=== PATIENT | male | born 1985 | race Caucasian/White ===

== ENCOUNTER 2016-12-12 21:23 | Emergency (ER) | payer OTHER ==
[2016-12-12] MEDS ORDERED: LORazepam 1 MG TABLET ONE (22:35)
--- NOTE | 2016-12-12 22:38 | ER PHYSICIAN DOCUMENTATION ---
Physician Documentation [facility] Name:Tristin Nevarez Age:31 yrs Sex:Male :1985 Arrival Date:12/12/2016 Time:21:20 Bed1 Private MD: Nam Baltazar Disposition: 12/12/16 22:26 Discharged to Home/Self Care. Impression: Seizure. - Condition is Good. - Discharge Instructions: SEIZURE, Recurrent [Adult]. - Medical Reconciliation form form. - Follow up: Private Physician; When: 2 - 3 days; Reason: Continuance of care. - Problem is new. - Symptoms have improved. HPI: 12/12 22:23 This 31 yrs old Male presents to ER via Walk In with complaints of Seizure. sc 22:23 The patient presents with a history of multiple seizures, an unknown number, that last sc 15 second(s). Character of seizure(s): Loss of consciousness: the patient did not lose consciousness, Motor activity: focal activity, Incontinence: none, Apnea: the patient did not experience apnea, Circulation: the patient did not experience evidence of pulse disturbance. Seizure Hx: Cause: head injury, Usual frequency: roughly every 2 week(s), Seizure medications: Keppra, but started today, off sz meds for a while. On ativan in past for breakthrough szs, eeg monitoring to be done soon. Associated injury: The patient did not suffer any apparent associated injury. Historical: - Allergies: No known drug Allergies; - Home Meds: 1. levetiracetam 100 mg/mL oral soln Unknown for Partial Epilepsy Treatment Adjunct - PMHx: Seizures; Tramatic brain injury; - PSHx: None; - Tetanus: < 10 years. - Ebola Screening: : No symptoms or risks identified at this time. . - Immunization history: Unable to Obtain. - Social history: Smoking status: Patient uses tobacco products, current every day smoker. Patient uses marijuana. ROS: 22:25 Constitutional: Negative for fever, chills, and weight loss. sc Eyes: Negative for injury, pain, redness, and discharge. ENT: Negative for injury, pain, and discharge. Cardiovascular: Negative for chest pain, palpitations, and edema. Respiratory: Negative for shortness of breath, cough, wheezing, and pleuritic chest pain. Back: Negative for injury and pain. 22:25 Skin: Negative for injury, rash, and discoloration. sc 22:25 Neuro: Positive for seizure activity. Exam: Constitutional: This is a well developed, well nourished patient who is awake, alert, and in no acute distress. Head/Face: Normocephalic, atraumatic. Eyes: Pupils equal round and reactive to light, extra-ocular motions intact. Lids and lashes normal. Conjunctiva and sclera are non-icteric and not injected. Cornea within normal limits. Periorbital areas with no swelling, redness, or edema. ENT: Nares patent. No nasal discharge, no septal abnormalities noted. Tympanic membranes are normal and external auditory canals are clear. Oropharynx with no redness, swelling, or masses, exudates, or evidence of obstruction, uvula midline. Mucous membranes moist. Neck: Trachea midline, no thyromegaly or masses palpated, and no cervical lymphadenopathy. Supple, full range of motion without nuchal rigidity, or vertebral point tenderness. No meningismus. Back: No spinal tenderness. No costovertebral tenderness. Full range of motion. Skin: Warm, dry with normal turgor. Normal color with no rashes, no lesions, and no evidence of cellulitis. 22:25 Neuro: Awake and alert, GCS 15, oriented to person, place, time, and situation. wa Cranial nerves II-XII grossly intact. Motor strength 5/5 in all extremities. Sensory grossly intact. Cerebellar exam normal. Normal gait. 22:26 Neuro: Motor: is normal. wa Vital Signs: 21:43 BP 138 / 87; Pulse 105; Resp 16; Pulse Ox 100% ; Weight 81.65 kg; Height 5 ft. 10 in. mk4 (177.80 cm); Pain 0/10; 22:35 BP 129 / 80; Pulse 88; Resp 14; Pulse Ox 98% ; Pain 0/10; mk4 21:43 Body Mass Index 25.83 (81.65 kg, 177.80 cm) mk4 [place] Coma Score: 21:45 Eye Response: spontaneous(4). Verbal Response: oriented(5). Motor Response: obeys mk4 commands(6). Total: 15. MDM: 21:53 Patient medically screened. wa 22:25 Differential diagnosis: seizure. Neurological re-evaluation: normal neurological exam wa including cranial nerves, orientation, mentation, motor and sensory exam, cerebellar testing, GCS normal, and normal gait. Data reviewed: vital signs, nurses notes, old medical records, and as a result, I will discharge patient. Counseling: I had a detailed discussion with the patient and/or guardian regarding: the historical points, exam findings, and any diagnostic results supporting the discharge/admit diagnosis, the need for outpatient follow up, for a referral to a specialist. Dispensed Medications: 22:34 Drug: Ativan 1mg 1 mg; Route: Sublingual; mk4 22:36 Follow up: Response: Pharmacy closed - take home med pack mk4 Point of Care Testing: Urine Dip: 21:46 pH: 6.5; ; Specific [place]: 1.010; Ketones: Negative; Glucose: Negative; Protein: em3 Negative; Leukocytes: Negative; Nitrite: Negative ; Blood: Negative; Bilirubin: Negative ; Urobilinogen: Normal Signatures: Nam Nam MD MD sc King, Melody 4
--- NOTE | 2016-12-12 22:38 | ER NURSING DOCUMENTATION ---
Nurse's Notes [facility] Name:Tristin Nevarez Age:31 yrs Sex:Male :1985 Arrival Date:12/12/2016 Time:21:20 Bed1 Private MD: Diagnosis:Seizure Presentation: 12/12 21:33 Presenting complaint: Patient states: " mini seizures" since this morning. Girl friend 4 describes them as " Parkinson like shakiness. HX- TBI. Transition of care: Home. Notified ED Physician of Dr. Nam notified. 21:33 Method Of Arrival: Walk In [facility] 21:33 Acuity: RAUL 3 [facility] Triage Assessment: 21:38 General: Appears in no apparent distress, Behavior is cooperative. Pain: Denies pain. [facility] EENT: Neuro: Oriented to person, place, time, [employer] are equal bilaterally Moves all extremities. Gait is steady, Speech slow. Facial symmetry appears normal, Pupils are dilated, Reports headache in entire weakness States " head feels weird". Cardiovascular: Capillary refill < 3 seconds Heart tones present Chest pain is denied. Respiratory: Airway is patent Trachea midline Respiratory effort is even, unlabored, Respiratory pattern is regular, symmetrical. GI: Abdomen is non- distended. : No deficits noted. Derm: No deficits noted. Musculoskeletal: No deficits noted. Historical: - Allergies: No known drug Allergies; - Home Meds: 1. levetiracetam 100 mg/mL oral soln Unknown for Partial Epilepsy Treatment Adjunct - PMHx: Seizures; Tramatic brain injury; - PSHx: None; - Tetanus: < 10 years. - Ebola Screening: : No symptoms or risks identified at this time. . - Immunization history: Unable to Obtain. - Social history: Smoking status: Patient uses tobacco products, current every day smoker. Patient uses marijuana. Screenin:45 Infectious Disease Risk None. Abuse screen: Unable to Obtain. Nutritional screening: No [facility] deficits noted. Assessment: 21:45 See Triage Assessment done by same RN. [facility] Vital Signs: 21:43 BP 138 / 87; Pulse 105; Resp 16; Pulse Ox 100% ; Weight 81.65 kg; Height 5 ft. 10 in. mk4 (177.80 cm); Pain 0/10; 22:35 BP 129 / 80; Pulse 88; Resp 14; Pulse Ox 98% ; Pain 0/10; mk4 21:43 Body Mass Index 25.83 (81.65 kg, 177.80 cm) mk4 [place] Coma Score: 21:45 Eye Response: spontaneous(4). Verbal Response: oriented(5). Motor Response: obeys mk4 commands(6). Total: 15. ED Course: 21:20 Patient arrived in ED. em3 21:29 Ning England is Primary Nurse. mk4 21:35 Triage completed. mk4 21:40 Labs drawn. By dicer operator Urine collected. Clean catch specimen. Inserted saline lock: 20 em3 gauge in left antecubital area and blood collected. 21:[address] Nam notified. Arm band placed on Bed in low position Call mk4 Light in Reach Side rails up x2. Family accompanied patient. 21:45 Valuables Remains with patient. Cardiac Monitoring On for Nurse Monitoring only. Pulse mk4 Ox - RN Monitoring Only NIBP On - RN Monitoring Only. Door closed. Noise minimized. Lights dimmed. 21:47 Nam Nam MD is Attending Physician. tx 22:37 Seizure precautions initiated. Seizure pads on bed close monitoring by staff. mk4 Administered Medications: 22:34 Drug: Ativan 1mg 1 mg; Route: Sublingual; mk4 22:36 Follow up: Response: Pharmacy closed - take home med pack mk4 Point of Care Testing: Urine Dip: 21:46 pH: 6.5; ; Specific [place]: 1.010; Ketones: Negative; Glucose: Negative; Protein: em3 Negative; Leukocytes: Negative; Nitrite: Negative ; Blood: Negative; Bilirubin: Negative ; Urobilinogen: Normal Outcome: 22:26 Discharge ordered by . tx 22:35 Discharged to home ambulatory. mk4 22:35 Condition: good 22:35 Discharge Assessment: Patient awake, alert and oriented x 3. No cognitive and/or functional deficits noted. Patient verbalized understanding of disposition instructions. 22:35 Discharge instructions given to patient, Instructed on discharge instructions, Demonstrated understanding of instructions, medications, Prescriptions given X prepak ativan 1mg po x 3 tabs 22:35 IV D/Demetrius mk4 22:38 Patient left the ED. mk4 Signatures: Nam Nam MD MD tx Magnus Reyes em3 Ning [place] mk4
== END 2016-12-12 22:38 | disposition home or self-care (01) ==
LOC: ER 21:23
DX: R56.9 Unspecified convulsions (principal); S09.90XS Unspecified injury of head, sequela; Z79.899 Other long term (current) drug therapy; F17.210 Nicotine dependence, cigarettes, uncomplicated
CPT/HCPCS: 99284